=== PATIENT | female | born 2000 | race African-American/Black ===

== ENCOUNTER 2020-06-22 14:44 | Emergency (ER) | payer OTHER, SELFPAY ==
--- NOTE | 2020-06-22 14:46 | ED.GENADULT ---
HPI - General Adult General Chief complaint: Urogenital-Female Stated complaint: STD Check Time Seen by Provider: 06/22/20 14:46 Source: patient Mode of arrival: ambulatory Limitations: no limitations History of Present Illness HPI narrative: 19-year-old female patient presents to the [facility] with complaints of concerns for STDs. Patient states she has had an odor and states she feels like her urine is more yellow than normal. Patient also concerned that she might be because she has not had a period for the past 3 months. Patient denies taking a test. Patient states she is sexually active with more than 1 partner. Patient denies any fevers, body aches or chills. Patient denies any nausea, vomiting or diarrhea. Related Data Allergies Allergy/AdvReac Type Severity Reaction Status Date / Time No Known Allergies Allergy Verified 06/22/20 15:04 Review of Systems Review of Systems: Narrative: CONSTITUTIONAL: Denies fever, chills, or sweats. EYES: Denies visual changes, redness, or discharge. ENT: Denies rhinorrhea, congestion, sore throat, or otalgia. CARDIOVASCULAR: Denies chest pain, palpitations, or edema. RESPIRATORY: Denies cough or dyspnea. GASTROINTESTINAL: Denies abdominal pain, nausea, vomiting, or diarrhea. GENITOURINARY: Denies dysuria or hematuria. Positive pain with urination, and odor to the vaginal area. Denies discharge. SKIN: Denies rash or itching. MUSCULOSKELETAL: Denies back pain, joint pain, or myalgia. NEUROLOGIC: Denies headache, numbness, or weakness. PSYCHIATRIC: Denies anxiety or depression. PMFSH Comments At the time of my signature I agree with nursing past medical history, surgical, social, and family history. There is no relevant family history pertinent to the presenting complaint. Exam Narrative: Exam Narrative: GENERAL: Well-appearing, well-nourished, and in no acute distress. HEAD: Normocephalic, atraumatic. EYES: PERRLA and EOMI. ENT: Nares clear, no rhinorrhea or epistaxis. Mucous membranes moist. NECK: Supple. No lymphadenopathy CHEST: Clear to auscultation. No respiratory distress. HEART: Regular rate and rhythm. No murmur heard. Normal peripheral pulses. ABDOMEN: Soft, nontender, nondistended, normal active bowel sounds. : Normal external female genitalia. OS is closed. No adnexal fullness or TTP. There is some white discharge noted with a slight odor. No CVA tenderness to percussion. EXTREMITIES: Normal range of motion. No edema. SKIN: Warm, dry, no rash. NEURO: No focal deficits. Alert and oriented x3. Course Vital Signs Vital signs: Vital Signs Temperature 36.5 C 06/22/20 15:06 Pulse Rate 95 06/22/20 15:06 Respiratory Rate 16 06/22/20 15:06 Blood Pressure 117/74 06/22/20 15:06 Pulse Oximetry 100 06/22/20 15:06 Temperature 36.5 C 06/22/20 15:06 Pulse Rate 95 06/22/20 15:06 Respiratory Rate 16 06/22/20 15:06 Blood Pressure 117/74 06/22/20 15:06 Pulse Oximetry 100 06/22/20 15:06 Vital signs reviewed Medical Decision Making Differential Diagnosis Differential Diagnosis: Differential diagnosis: Gonorrhea, chlamydia, Trichomonas, bacterial vaginosis, herpes, HIV, yeast infection, urinary tract infection. Uncomplicated lower UTI, uncomplicated UTI, pyelonephritis Any care for patient is to go ahead and do a pelvic exam and swab her for gonorrhea, clinical chlamydia and trichomonas. We will also do a test on her as well as a urine dip. Vital Signs Vital Signs: Vital Signs Temperature 36.5 C 06/22/20 15:06 Pulse Rate 95 06/22/20 15:06 Respiratory Rate 16 06/22/20 15:06 Blood Pressure 117/74 06/22/20 15:06 Pulse Oximetry 100 06/22/20 15:06 Temperature 36.5 C 06/22/20 15:06 Pulse Rate 95 06/22/20 15:06 Respiratory Rate 16 06/22/20 15:06 Blood Pressure 117/74 06/22/20 15:06 Pulse Oximetry 100 06/22/20 15:06 Lab Data Labs: UCG Bedside Result Negative
[2020-06-22 15:06] VITALS: BP 117/74; PULSE 95; RESP 16; TEMP 36.5; O2SAT 100
[2020-06-22] MEDS: cefTRIAXone 250 MG VIAL 500 MG IM (15:36)
[2020-06-22] MEDS: AZITHROMYCIN 250 MG TABLET 1000 MG PO (15:36)
[2020-06-22] MEDS: LIDOCAINE HCL 1% LOCAL INJ 20 ML VIAL IM (15:37)
== END 2020-06-22 15:50 | disposition home or self-care (01) ==
PROVIDERS: Emergency Provider Nurse Practitioner Family
DX: Z20.2 Contact with and (suspected) exposure to infections with a predominantly sexual mode of transmission (principal)
CPT/HCPCS: 81003; 81025; 87491; 87591; 87661; 96372; 99204; A9270; G0463; J0696